=== PATIENT | male | born 1990 | race Two or more races ===

== ENCOUNTER 2016-09-16 10:30 | Emergency (ER) | payer SELFPAY ==
[~2016-09-16] VITALS: Ht 167.6 cm; Wt 75.1 kg
[2016-09-16] MEDS ORDERED: MOTRIN800 MG PO (15:47)
[2016-09-16] MEDS ORDERED: AUGMENTIN875 MG PO (15:47)
[2016-09-16] MEDS ORDERED: NORCO 7.5/321 TABLET PO (15:47)
[2016-09-16] MEDS ORDERED: ZOFRAN ODT4 MG PO (15:55)
[2016-09-16 16:08] VITALS: BP 122/71
== END 2016-09-16 16:53 | disposition home or self-care (01) ==
LOC: EME 10:30
DX: S01.511A Laceration without foreign body of lip, initial encounter (principal); S00.83XA Contusion of other part of head, initial encounter; S06.0X0A Concussion without loss of consciousness, initial encounter; S39.94XA Unspecified injury of external genitals, initial encounter; Y04.8XXA Assault by other bodily force, initial encounter; Y07.9 Unspecified perpetrator of maltreatment and neglect
CPT/HCPCS: 70450; 70486; 76870; 93975; 99281; 99285; J3010

== ENCOUNTER 2016-09-17 21:08 | Emergency (ER) | payer SELFPAY ==
[~2016-09-17] VITALS: Ht 167.6 cm; Wt 74.3 kg
[~2016-09-17 21:08] MED LIST: AUGMENTIN875 MG PO; MOTRIN800 MG PO; NORCO 7.5/321 TABLET PO; ZOFRAN ODT4 MG PO
[2016-09-17 23:11] VITALS: BP 134/79
== END 2016-09-17 23:14 | disposition home or self-care (01) ==
LOC: EME 21:08 → EXP 21:08
DX: F07.81 Postconcussional syndrome (principal)
CPT/HCPCS: 99281; 99285; J2405